=== PATIENT | male | born 1990 | race Caucasian/White ===

== ENCOUNTER 2016-07-25 06:31 | Emergency (ER) | payer BC ==
[~2016-07-25] VITALS: Ht 175.3 cm; Wt 90.2 kg
[2016-07-25 06:37] VITALS: Ht 175.3 cm; Wt 90.2 kg
[2016-07-25] MEDS ORDERED: SODIUM CHLORIDE 0.9% 1000ML 1,000 ML IV STA (07:59)
[2016-07-25 08:08] LABS: URINE APPEARANCE CLEAR (CLEAR); URINE COLOR DK YELLOW; URINE NITRITE NEG (NEG); URINE PH 5.5 (4.5-7.5); URINE SPECIFIC GRAVITY 1.036 (1.000-1.030); UROBILINOGEN NEG (NEG); ZZUR CULT IF INDIC CLEAN CATCH NO
[2016-07-25 08:13] LABS: MANUAL MICROSCOPIC REQUIRED? NO; REVIEW REQ? NO; URINE BILIRUBIN NEG (NEG)
[2016-07-25 08:31] LABS: BASO % 0.3 %; BASO ABS # 0.02 K/uL (0-0.2); COMPLETE YES; EOS % 0.2 %; HEMATOCRIT 46.4 % (42-52); IG% 0.2 %; LYMPH % 20.1 %; LYMPH ABS # 1.28 K/uL (1.2-3.4); MEAN CELL VOLUME 86.4 fL (80-100); MEAN CORPUSCULAR HEMOGLOBIN 30.7 pg (25-34); MEAN CORPUSCULAR HGB CONC 35.6 g/dl (32-36); MEAN PLATELET VOLUME 11.4 fL (7.4-10.4); MONO % 4.5 %; NEUT % 74.7 %; PLATELET COUNT 151 K/uL (130-400); RED BLOOD COUNT 5.37 M/uL (4.7-6.1); WHITE BLOOD COUNT 6.38 K/uL (4.8-10.8)
[2016-07-25 08:54] LABS: BUN/CREATININE RATIO 13.3 (10-20); CALCIUM 9.4 mg/dl (8.5-10.1); CREATININE 0.81 mg/dl (0.60-1.40); POTASSIUM 3.4 mmol/L (3.5-5.1)
[2016-07-25 08:56] LABS: ALB/GLOB RATIO 1.2 (0.9-2)
--- NOTE | 2016-07-25 09:14 | DIAGNOSTIC IMAGING REPORT ---
CT SCAN OF THE ABDOMEN AND PELVIS WITHOUT CONTRAST CLINICAL HISTORY: Right flank pain and vomiting COMPARISON STUDY: No previous studies for comparison. TECHNIQUE: CT scan of the abdomen and pelvis was performed from the lung bases to the proximal femurs. Images are reviewed in the axial, sagittal, and coronal planes. IV contrast was not administered for this examination. CT DOSE: 990.52 mGy.cm FINDINGS: Lower chest: The heart is normal in size and configuration, without pericardial effusion. The lung bases and pleural spaces are clear. Liver: The unenhanced liver is normal in size, contour, and attenuation. There is no intrahepatic biliary ductal dilatation. Gallbladder: Unremarkable. Spleen: Normal in size and attenuation. Pancreas: Unremarkable. Adrenal glands: No adrenal masses are visualized. There are right adrenal gland calcifications. Kidneys: No renal, ureteral, or bladder calculi are visualized. There is no hydronephrosis Bowel: There are no transition zones indicate bowel obstruction. There is no evidence of acute diverticulitis. The appendix is not visualized surgery for this examination performed without the benefit of intravenous or oral contrast. No pericecal inflammatory changes are visualized. Peritoneum: There is no intraperitoneal free air or abdominal ascites. Vasculature: The abdominal aorta is normal in course and caliber. Adenopathy: None. Pelvic viscera: The bladder, and pelvic viscera are unremarkable. Skeletal structures: No destructive osseous lesions are seen. IMPRESSION: 1. No renal, ureteral, or bladder calculi identified 2. No evidence of bowel obstruction. No evidence of free air 3. No acute inflammatory changes are visualized Electronically signed by: Saad Corona M.D. 07/25/2016 9:12 AM Dictated Date/Time: 07/25/2016 9:07 AM
[2016-07-25 10:32] VITALS: TEMP 36.7
[2016-07-25 12:05] VITALS: BP 105/66; PULSE 98; O2SAT 98
--- NOTE | 2016-07-25 19:05 | EMERGENCY ROOM VISIT NOTE ---
History First contact with patient: 07:53 Chief Complaint: ABDOMINAL PAIN Stated Complaint: PEEING DARK ORANGE,RT SIDE PAIN,VOMITING,DIZZY Nursing Triage Summary: c/o rlq abd pain for a few days and now his urine is dark orange. History of Present Illness The patient is a 25 year old white male who presents to the Emergency Room with complaints of right flank pain that began yesterday. It has persisted. He also noted extremely dark urine this morning and became concerned. He denies any fevers, chills, or sweats. No nausea, vomiting, or diarrhea. No trauma. No history of kidney stones. He feels he has been drinking adequately. He states he did go running earlier in the week, but denies any soreness from that. No urgency, frequency, or burning. No UTI symptoms. He denies any discomfort over his bladder. Review of Systems REVIEW OF SYSTEM: HEENT: No dizziness, visual problems, hearing loss, or tinnitus. There is no difficulty swallowing and no oral lesions are present. LYMPH: No adenopathy. PULMONARY: No cough, shortness of breath, sputum production or hemoptysis. CARDIOVASCULAR: No chest pain, palpitations, shortness of breath or peripheral edema. GASTROINTESTINAL: No diarrhea, constipation, nausea, vomiting, or abdominal pain. GENITOURINARY: No dysuria, frequency, urgency or nocturia. NEUROLOGIC: No weakness, muscle tenderness, epilepsy or history of neurological problems. MUSCULOSKELETAL: No history of joint tenderness/swelling. No history of arthritis or arthralgias. SKIN: No rashes or lesions. PSYCHIATRIC: No history of depression or mental illness. ENDOCRINE: No history of diabetes, thyroid disorders, or abnormal hair growth. Past Medical/Surgical History Previous surgeries: Medical history: Social History Smoking Status: Never Smoker Smokeless Tobacco Use: No Drug Use: none Marital Status: single Occupation Status: employed Current/Historical Medications No Active Prescriptions or Reported Meds Allergies Coded Allergies: No Known Allergies (Unverified , 07/25/16) Physical Exam Vital Signs Date Time Temp Pulse Resp B/P Pulse Ox O2 Delivery O2 Flow Rate FiO2 07/25/16 12:05 98 18 105/66 98 07/25/16 10:32 36.7 108 18 123/71 99 Room Air 07/25/16 08:33 91 07/25/16 08:31 36.7 83 20 121/74 98 07/25/16 06:37 85 18 123/82 99 Room Air Physical Exam Gen.: Well-developed, well-nourished, young white male, in no acute distress. Sitting on a bed. Alert and oriented. Skin:Warm and dry with good turgor. No rashes or lesions. No ecchymosis or erythema. The patient is not diaphoretic. No abrasions. HEENT: Normocephalic atraumatic. Eyes PERRLA, EOMI. No conjunctiva or scleral injection. Nares patent bilaterally without turbinate enlargement. No significant drainage. No epistaxis. Oropharynx without erythema or exudate. Uvula midline, oral mucosa moist. No lesions present. Heart: Heart RRR. No MGR. Peripheral pulses are 2+. Lungs: Lungs are clear to auscultation. No crackles rhonchi or wheezing. Good air movement. The patient is able to take a deep breath. Abdomen: Abdomen was inspected, auscultated, and palpated. Bowel sounds present x 4. Soft, nontender to palpation. He describes soreness in the right flank. No hepato- splenomegaly. No masses noted. No rebound, negative Webb sign. No pain over McBurney's point. Mild right CVA tenderness. Musculoskeletal: Gross motor function of the upper and lower extremities is intact and unremarkable. Medical Decision & Procedures ER Provider Diagnostic Interpretation: CT scan imaging of the abdomen and pelvis without contrast was obtained. This was read by radiology as unremarkable. No evidence for masses, stones, or obstruction. Laboratory Results 07/25/16 08:00 Red Blood Count 5.37, Mean Corpuscular Volume 86.4, Mean Corpuscular Hemoglobin 30.7, Mean Corpuscular Hemoglobin Concent 35.6, Mean Platelet Volume 11.4, Neutrophils (%) (Auto) 74.7, Lymphocytes (%) (Auto) 20.1, Monocytes (%) (Auto) 4.5, Eosinophils (%) (Auto) 0.2, Basophils (%) (Auto) 0.3, Neutrophils # (Auto) 4.77, Lymphocytes # (Auto) 1.28, Monocytes # (Auto) 0.29, Eosinophils # (Auto) 0.01, Basophils # (Auto) 0.02 07/25/16 08:00 Test 07/25/16 07:35 07/25/16 08:00 Urine Color DK YELLOW Urine Appearance CLEAR (CLEAR) Urine pH 5.5 (4.5-7.5) Urine Specific [place] 1.036 (1.000-1.030) Urine Protein NEG (NEG) Urine Glucose (UA) NEG (NEG) Urine Ketones 3+ (NEG) Urine Occult Blood NEG (NEG) Urine Nitrite NEG (NEG) Urine Bilirubin NEG (NEG) Urine Urobilinogen NEG (NEG) Urine Leukocyte Esterase SMALL (NEG) Urine WBC (Auto) 1-5 /hpf (0-5) Urine RBC (Auto) 0-4 /hpf (0-4) Urine Hyaline Casts (Auto) 5-10 /lpf (0-5) Urine Epithelial Cells (Auto) 5-10 /lpf (0-5) Urine Bacteria (Auto) NEG (NEG) White Blood Count 6.38 K/uL (4.8-10.8) Red Blood Count 5.37 M/uL (4.7-6.1) Hemoglobin 16.5 g/dL (14.0-18.0) Hematocrit 46.4 % (42-52) Mean Corpuscular Volume 86.4 fL (80-100) Mean Corpuscular Hemoglobin 30.7 pg (25-34) Mean Corpuscular Hemoglobin Concent 35.6 g/dl (32-36) Platelet Count 151 K/uL (130-400) Mean Platelet Volume 11.4 fL (7.4-10.4) Neutrophils (%) (Auto) 74.7 % Lymphocytes (%) (Auto) 20.1 % Monocytes (%) (Auto) 4.5 % Eosinophils (%) (Auto) 0.2 % Basophils (%) (Auto) 0.3 % Neutrophils # (Auto) 4.77 K/uL (1.4-6.5) Lymphocytes # (Auto) 1.28 K/uL (1.2-3.4) Monocytes # (Auto) 0.29 K/uL (0.11-0.59) Eosinophils # (Auto) 0.01 K/uL (0-0.5) Basophils # (Auto) 0.02 K/uL (0-0.2) RDW Standard Deviation 40.5 fL (36.4-46.3) RDW Coefficient of Variation 12.8 % (11.5-14.5) Immature Granulocyte % (Auto) 0.2 % Immature Granulocyte # (Auto) 0.01 K/uL (0.00-0.02) Anion Gap 10.0 mmol/L (3-11) Est Creatinine Clear Calc Drug Dose 152.1 ml/min Estimated GFR () 141.2 Estimated GFR (Non- 121.8 BUN/Creatinine Ratio 13.3 (10-20) Calcium Level 9.4 mg/dl (8.5-10.1) Total Bilirubin 0.8 mg/dl (0.2-1) Aspartate Amino Transf (AST/SGOT) 23 U/L (15-37) Alanine Aminotransferase (ALT/SGPT) 24 U/L (12-78) Alkaline Phosphatase 42 U/L (45-117) Total Creatine Kinase 458 U/L (39-308) Total Protein 8.4 gm/dl (6.4-8.2) Albumin 4.5 gm/dl (3.4-5.0) Globulin 3.9 gm/dl (2.5-4.0) Albumin/Globulin Ratio 1.2 (0.9-2) Lipase 239 U/L (73-393) CBC and chem panel obtained today were unremarkable. CK is elevated at 458. UA shows 3+ ketones with no bacteria or blood Medications Administered Medications (Trade) Dose Ordered Sig/Berny Route Start Time Stop Time Status Last Admin Dose Admin Sodium Chloride (Nss 1000ml) 1,000 ml @ 999 mls/hr Q1H1M STAT IV 07/25/16 07:59 07/25/16 08:59 DC 07/25/16 08:10 999 MLS/HR 1 L normal sterile saline IV bolus, additional 500 mL normal sterile saline IV bolus ED Course Patient was educated regarding today's findings. Conservative care measures were discussed. IV was established. Labs were obtained. The scan imaging of the abdomen and pelvis was also obtained. CK is minimally elevated. I do not suspect rhabdomyolysis at this time. Patient was hydrated with a liter and a half normal sterile saline IV bolus due to his ketones. He was encouraged to drink more fluid. Avoid exercise or hot environments for the next 10-14 days. Follow-up with his PCP. Return to the ED for any acute changes. Medical Decision Possibility of kidney stone, nephritis, UTI, appendicitis, tumor, and rhabdomyolysis were considered among others. Impression Primary Impression: Dehydration symptoms Additional Impression: Acute right flank pain Departure Information Prescriptions No Active Prescriptions or Reported Meds Referrals No Doctor, Assigned (PCP) Patient Instructions [facility] Problem Qualifiers
== END 2016-07-25 12:01 | disposition home or self-care (01) ==
LOC: C.EDB 06:33
DX: R39.89 Other symptoms and signs involving the genitourinary system (principal); R10.9 Unspecified abdominal pain

== ENCOUNTER 2017-05-06 01:02 | Emergency (ER) | payer SELFPAY ==
[~2017-05-06] VITALS: Ht 177.8 cm; Wt 90.9 kg
[2017-05-06 01:07] VITALS: TEMP 36.3; Ht 177.8 cm; Wt 90.9 kg
[2017-05-06] MEDS ORDERED: BENZOCAINE 20% (ORAJEL) 11.9 GM TUBE MT STA (01:59)
[2017-05-06] MEDS ORDERED: KETOROLAC TROMETHAMINE 30 MG/ML VIAL IV STA (01:59)
[2017-05-06] MEDS ORDERED: CLINDAMYCIN 150MG HOME PACK PO ONE (02:00)
[2017-05-06 02:15] VITALS: O2SAT 98
[2017-05-06 02:29] LABS: BASO % 0.3 %; BASO ABS # 0.03 K/uL (0-0.2); COMPLETE YES; EOS % 1.2 %; HEMATOCRIT 44.1 % (42-52); IG% 0.2 %; LYMPH ABS # 2.11 K/uL (1.2-3.4); MEAN CELL VOLUME 89.8 fL (80-100); MEAN CORPUSCULAR HEMOGLOBIN 30.5 pg (25-34); MEAN PLATELET VOLUME 11.3 fL (7.4-10.4); MONO % 8.7 %; NEUT % 71.6 %; PLATELET COUNT 162 K/uL (130-400); RED BLOOD COUNT 4.91 M/uL (4.7-6.1)
[2017-05-06 03:06] LABS: BLOOD UREA NITROGEN 16 mg/dl (7-18); BUN/CREATININE RATIO 24.1 (10-20); CALCIUM 8.4 mg/dl (8.5-10.1); CARBON DIOXIDE 27 mmol/L (21-32); CHLORIDE 105 mmol/L (98-107); CREATININE 0.67 mg/dl (0.60-1.40); GLUCOSE 117 mg/dl (70-99); POTASSIUM 3.6 mmol/L (3.5-5.1); SODIUM 138 mmol/L (136-145)
[2017-05-06 03:07] LABS: ALKALINE PHOSPHATASE 39 U/L (45-117); ALT/SGPT 21 U/L (12-78); AST/SGOT 13 U/L (15-37)
--- NOTE | 2017-05-06 04:38 | EMERGENCY ROOM VISIT NOTE ---
History First contact with patient: 01:32 Chief Complaint: DENTAL PAIN Stated Complaint: TOOTH PAIN - IS ALSO CAUSING CHEST PAIN Nursing Triage Summary: Patient reports left sided, bottom dental pain, began one month ago, pain worse last two days. Patient has not seen a dentist, he does not have one. History of Present Illness The patient is a 26 year old male who presents to the Emergency Room with complaints of left lower dental pain for the past several days described as aching, ranging in severity currently 6 out of 10. Nothing makes it better or worse. Patient states occasionally the tooth pain radiates to his mid chest lasting for a minute or 2 throughout the day today. Nothing prolonged. Nothing exertional. Patient denies dyspnea, fever, chills, facial swelling, back pain, tongue swelling, neck stiffness, abdominal pain, leg pain or swelling. No prior heart disease. Patient does not smoke. No IV drug abuse. There is a distant family history of heart disease. He does not have a dentist. Review of Systems See HPI for pertinent positives & negatives. A total of 10 systems reviewed and were otherwise negative. Past Medical/Surgical History Anxiety Social History Smoking Status: Never Smoker Drug Use: none Marital Status: single Occupation Status: employed Current/Historical Medications No Active Prescriptions or Reported Meds Physical Exam Vital Signs Date Time Temp Pulse Resp B/P (MAP) Pulse Ox O2 Delivery O2 Flow Rate FiO2 05/06/17 04:08 98 144/89 99 Room Air 05/06/17 02:50 95 144/85 97 Room Air 05/06/17 02:19 83 05/06/17 02:15 98 Room Air 05/06/17 02:15 98 Room Air 05/06/17 01:07 36.3 82 18 159/78 97 Room Air Physical Exam VITALS: Vitals are noted on the nurse's note and reviewed by myself. Vital signs stable. GENERAL: White male, in no acute distress, nondiaphoretic, well-developed well- nourished. SKIN: The skin was without rashes, erythema, edema, or bruising. There is no tenting of the skin. Capillary reflex less than 2 seconds. HEAD: Normocephalic atraumatic. EARS: External auditory canals clear, tympanic membranes pearly neal without erythema or effusion bilaterally. EYES: Pupils equal round and reactive to light and accommodation. Conjunctivae without injection, sclerae without icterus. Extraocular movements intact. NOSE: Patent, turbinates without inflammation or discharge. No sinus tenderness. MOUTH: Mucous membranes moist. no Nicanor's angina. Pharynx without erythema or exudate. Uvula midline. Airway patent. Tongue does not deviate. Dental exam: Left lower second molar with extensive dental case without palpable abscess with minimal gum swelling that is erythematous. NECK: Supple without nuchal rigidity. No lymphadenopathy. No thyromegaly. Cervical spine is nontender. No JVD. HEART: Regular rate and rhythm without murmurs gallops or rubs. Chest nontender to palpation LUNGS: Clear to auscultation bilaterally without wheezes, rales or rhonchi. No dullness to percussion. No retractions or accessory muscle use. ABDOMEN: Positive bowel sounds x 4. Normal tympanic percussion. Soft, nontender, without masses or organomegaly. Webb sign negative. No guarding or rebound tenderness. MUSCULOSKELETAL: No muscle atrophy, erythema, or edema noted. NEURO: Patient was alert and oriented to person place and time. Normal sensation to light and sharp touch. No focal neurological deficits. Medical Decision & Procedures Laboratory Results 05/06/17 02:08 Red Blood Count 4.91, Mean Corpuscular Volume 89.8, Mean Corpuscular Hemoglobin 30.5, Mean Corpuscular Hemoglobin Concent 34.0, Mean Platelet Volume 11.3, Neutrophils (%) (Auto) 71.6, Lymphocytes (%) (Auto) 18.0, Monocytes (%) (Auto) 8.7, Eosinophils (%) (Auto) 1.2, Basophils (%) (Auto) 0.3, Neutrophils # (Auto) 8.38, Lymphocytes # (Auto) 2.11, Monocytes # (Auto) 1.02, Eosinophils # (Auto) 0.14, Basophils # (Auto) 0.03 05/06/17 02:08 Test 05/06/17 02:08 05/06/17 04:10 White Blood Count 11.70 K/uL (4.8-10.8) Red Blood Count 4.91 M/uL (4.7-6.1) Hemoglobin 15.0 g/dL (14.0-18.0) Hematocrit 44.1 % (42-52) Mean Corpuscular Volume 89.8 fL (80-100) Mean Corpuscular Hemoglobin 30.5 pg (25-34) Mean Corpuscular Hemoglobin Concent 34.0 g/dl (32-36) Platelet Count 162 K/uL (130-400) Mean Platelet Volume 11.3 fL (7.4-10.4) Neutrophils (%) (Auto) 71.6 % Lymphocytes (%) (Auto) 18.0 % Monocytes (%) (Auto) 8.7 % Eosinophils (%) (Auto) 1.2 % Basophils (%) (Auto) 0.3 % Neutrophils # (Auto) 8.38 K/uL (1.4-6.5) Lymphocytes # (Auto) 2.11 K/uL (1.2-3.4) Monocytes # (Auto) 1.02 K/uL (0.11-0.59) Eosinophils # (Auto) 0.14 K/uL (0-0.5) Basophils # (Auto) 0.03 K/uL (0-0.2) RDW Standard Deviation 45.5 fL (36.4-46.3) RDW Coefficient of Variation 13.9 % (11.5-14.5) Immature Granulocyte % (Auto) 0.2 % Immature Granulocyte # (Auto) 0.02 K/uL (0.00-0.02) Anion Gap 6.0 mmol/L (3-11) Est Creatinine Clear Calc Drug Dose 186.1 ml/min Estimated GFR () > 150.0 Estimated GFR (Non- 130.8 BUN/Creatinine Ratio 24.1 (10-20) Calcium Level 8.4 mg/dl (8.5-10.1) Total Bilirubin 0.2 mg/dl (0.2-1) Direct Bilirubin mg/dl (0-0.2) Aspartate Amino Transf (AST/SGOT) 13 U/L (15-37) Alanine Aminotransferase (ALT/SGPT) 21 U/L (12-78) Alkaline Phosphatase 39 U/L (45-117) Total Protein 7.9 gm/dl (6.4-8.2) Albumin 3.8 gm/dl (3.4-5.0) Lipase 209 U/L (73-393) Chemistry Specimen Hemolysis Bedside Troponin I < 0.030 ng/ml (0-0.045) Medications Administered Medications (Trade) Dose Ordered Sig/Berny Route Start Time Stop Time Status Last Admin Dose Admin Ketorolac Tromethamine (Toradol Inj) 30 mg NOW STAT IV 05/06/17 01:59 05/06/17 02:01 DC 05/06/17 02:26 30 MG Clindamycin HCl (Cleocin 150MG Home Pack) 1 homepack UD ONCE PO 05/06/17 02:00 05/06/17 02:01 DC 05/06/17 02:29 1 HOMEPACK Benzocaine (Orajel 20% Oral Gel) 1 appln NOW STAT MT 05/06/17 01:59 05/06/17 02:01 DC 05/06/17 02:27 1 APPLN ED Course Prior records/ancillary studies reviewed. Triage Nursing notes reviewed. The patient's history was concerning for dental pain and occasional chest pain. Differential diagnosis: Etiologies such as dental caries, gingivitis, Nicanor angina, facial cellulitis, facial abscess, cardiac ischemia, aortic dissection, pulmonary embolism, pneumonia, pneumothorax, musculoskeletal, infections, pericarditis, myocarditis , esophageal rupture, gastrointestinal, as well as others were entertained. Physical examination: As above. ER treatment provided: Clindamycin, Orajel On reassessment the patient felt better. Diagnostic interpretation by me: The electrocardiogram was normal sinus, occasional sinus arrhythmia, no acute ST -T wave changes, rate 64. Impression normal sinus rhythm with occasional sinus rhythm interpreted by myself The labs revealed negative troponin 2 that is greater than 2 hours apart Imaging studies: Chest x-ray with no acute consolidation, pneumothorax or free air per my interpretation Exam and history seem consistent with dental pain from dental caries and occasional chest pain that could be related to his discomfort from the pain. Patient had no acute findings on EKG. He had 2 negative troponins. No pneumonia. He was counseled on proper dental hygiene and verbalized understanding this. He was advised to see dentist for definitive care for his dental problem. Is advised to see his family care DrRuddy for his chest pain. He is advised to return to the ER me for chest pain, difficulty breathing, fevers, worsening signs or symptoms or as needed.By the evaluation outlined above emergent etiologies such as cardiac ischemia, aortic dissection, pulmonary embolism, pneumonia, pneumothorax, infections, pericarditis, myocarditis, gastrointestinal, as well as others were deemed relatively unlikely. The pt informed about the findings as listed above. All questions were answered and pleased with the treatment. Return instructions were outlined and the patient was discharged in stable condition. Outpatient prescription management: Clindamycin, OxyIR Referral: The patient was referred back to dentistry and primary care physician for follow -up in 2 to 3 days for a recheck of the current condition. Case reviewed with my attending Medical Decision As above Medication Reconcilliation Current Medication List: was personally reviewed by me Blood Pressure Screening Patient's blood pressure: Normal blood pressure Impression Primary Impression: Precordial chest pain Additional Impressions: Dental caries Pain, dental Departure Information Dispostion Home / Self-Care Condition GOOD Prescriptions No Active Prescriptions or Reported Meds Referrals No Doctor, Assigned (PCP) Patient Instructions [facility] Additional Instructions Clindamycin 150mg: Take one pill 4 times daily for 10 days for your infection. Take with food, but avoid dairy. Avoid prolonged sun exposure since this medication makes you temporarily more susceptible to sunburns. All antibiotics can cause diarrhea. If this occurs and you feel worse or it does not resolve in 1-2 days follow up with your doctor or return to the Emergency Department as this could be signs of serious underlying problems. Any medication can cause an allergic reaction, stop the pills immediately and return to the ER for rash, hives, breathing difficulties, or swelling. Oxycodone (OxyIR) 5mg: Take 1-2 pills every four hours for breakthrough pain. Avoid alcohol, operating machinery or dangerous equipment, working on ladders or roofs, DRIVING, or situations where being under the influence may be dangerous. It is recommended to use an [id number] stool softener such as Colace, 100mg twice daily while taking this medication to avoid constipation. Ibuprofen(Motrin, Advil) may be used for fever or pain. Use 600mg every six hours as needed. Take with food. Avoid using more than 2400mg in a 24 hour period. Do not use 2400mg per day for more than three consecutive days without physician direction. Prolonged inappropriate use can lead to stomach upset or ulcers. This medication can be taken if you need to drive, work, or perform activities which may be dangerous when taking narcotic pain medication. (AND/OR) Acetaminophen(Tylenol) may be used for fever or pain. Use 1000mg every six hours as needed. Avoid using more than 3000mg in a 24 hour period. This medication can be taken if you need to drive, work, or perform activities which may be dangerous when taking narcotic pain medication. [place] teeth twice a day, floss daily and do warm saltwater gargles 3 times a day. See a dentist as soon as possible for definitive care for your dental problem. Return to ER sooner for facial swelling, fever, redness, worsening signs or symptoms or as needed. Follow-up with family care in 2-3 days for further evaluation and workup for your your chest pain. Problem Qualifiers
[2017-05-06] MEDS ORDERED: CLIN150C PO (04:42)
[2017-05-06] MEDS ORDERED: OXYCODONE IR HOME PACK PO ONE (04:45)
[2017-05-06 04:59] VITALS: BP 139/93; PULSE 100; O2SAT 99
--- NOTE | 2017-05-06 07:07 | DIAGNOSTIC IMAGING REPORT ---
CHEST ONE VIEW PORTABLE HISTORY: 26 years-old Male CHEST PAIN acute atypical chest pain COMPARISON: None available TECHNIQUE: Portable AP view of the chest FINDINGS: Cardiomediastinal and hilar silhouettes are within normal limits. There is no pneumothorax, pleural effusion, focal airspace consolidation or overt pulmonary edema. Bones of the chest appear grossly intact. IMPRESSION: No acute cardiopulmonary process. The above report was generated using voice recognition software. It may contain grammatical, syntax or spelling errors. Electronically signed by: Urban Mosqueda M.D. 05/06/2017 7:06 AM Dictated Date/Time: 05/06/2017 7:05 AM
== END 2017-05-06 05:00 | disposition home or self-care (01) ==
LOC: C.EDB 01:03 → C.EDA 05:00
DX: R07.2 Precordial pain (principal); K08.89 Other specified disorders of teeth and supporting structures; F41.9 Anxiety disorder, unspecified

== ENCOUNTER → 2017-08-09 | Outpatient (CLI) | payer OTHER | END | disposition home or self-care (01) | LOC: C.LAB 03:03 | DX: Z02.83 Encounter for blood-alcohol and blood-drug test (principal) ==